=== PATIENT | female | born 2000 | race Caucasian/White ===

== ENCOUNTER 2022-01-09 17:20 | Emergency (ER) | payer MEDICAID, SELFPAY ==
[2022-01-09 17:21] VITALS: BP 114/74; PULSE 89; RESP 16; TEMP 36.2; O2SAT 99; BMI 23.0
[2022-01-09 18:19] LABS: Absolute Lymphocyte Count 2.72 X10^3/uL (0.83-4.51); Absolute Neutrophil Count 3.6 X10^3/uL (2.0-7.7); Basophil# 0.02 X10^3/uL; Basophil% 0.3 % (0-1); Eosinophil# 0.07 X10^3/uL; Hematocrit 43.6 % (37-47); Hemoglobin 14.6 g/dL (12.0-15.0); Lymphocyte # 2.72 X10^3/ul (0.83-4.51); Lymphocyte % 39.2 % (19-41); Mean Corp Hgb Conc 33.5 g/dL (32-36); Mean Corpuscular Volume 89.7 fL (81-99); Monocyte# 0.51 X10^3/uL; Monocyte% 7.3 % (0-10); NRBC Flagged by Analyzer 0 % (0-5); Neutrophil % 51.9 % (47-70); Platelet Count 259 K/mm3 (150-450); Red Blood Count 4.86 M/mm3 (4.2-5.4); White Blood Count 6.9 K/mm3 (4.4-11.0)
[2022-01-09 18:33] LABS: Anion Gap 7 (5-15); BUN 17 mg/dL (7-18); BUN/Creat Ratio 23.1 RATIO (10-20); Calcium,Total 9.4 mg/dL (8.5-10.1); Chloride 104 mmol/L (98-107); Creatinine, Serum 0.74 mg/dL (0.55-1.02); EST Glomerular Filtration Rate 107 mL/min (>60); Est Glom Filt Rate - Afr Amer 130 mL/min (>60); Estimated Creatinine Clearance 87.11 ml/min; Glucose 83 mg/dL (74-106); Potassium 3.8 mmol/L (3.5-5.1); Sodium Level 139 mmol/L (136-145)
[2022-01-09 18:49] LABS: Internal QC Validated? YES +Cl - CLEAR BKGD
[2022-01-09 18:50] LABS: Pregnancy, Serum, hCG Quali. NEGATIVE Negative
[2022-01-09 21:26] LABS: Mucous, Urine 0 SEEN /hpf (<or=2+); Red Blood Cells-Urine 0 SEEN /hpf (0-5)
[2022-01-09 21:35] LABS: Color, Urine Yellow (Yellow); Glucose, Dipstick Normal (Normal); Ketone-Dipstick Negative (Negative); Leukocyte Esterase-Dipstick 500 /ul (Negative); Nitrite-Dipstick Negative (Negative); Occult Blood-Urine 10 /ul (Negative); Protein-Dipstick 15 mg/dl (Negative); Specific Gravity, Urine 1.025 (1.002-1.030); Urine Bilirubin Dipstick Negative (Negative); Urine Clarity Sl. Cloudy (Clear); Urine Urobilinogen Normal (Normal)
[2022-01-09 21:42] LABS: Bacteria 1+ /hpf (None Seen); Squamous Epithelial Cells - UA 5-10 SEEN /hpf (5-10); White Blood Cells 10-25 SEEN /hpf (0-5)
--- NOTE | 2022-01-09 22:21 | ED.VIS.GI ---
HPI HPI - GI History of Present Illness Chief Complaint: Abd Pain Informant: patient Abdominal Pain/Flank Pain Onset: Today Context: Gradual Onset Timing: Intermittent Quality: Cramping and Sharp Location: Diffuse Worsened by: - (Sitting, ambulation) Relieved by: Nothing Nausea/Vomiting/Emesis GI Symptom: Negative for Nausea or Vomiting Diarrhea/Melena/Hematochezia GI Symptom: Negative for Diarrhea, Melena or Hematochezia Associated Symptoms Associated Symptoms: Negative for Dysuria, Frequency or Hematuria Narrative Narrative: Patient presents with abdominal pain that began today. Patient states it has been intermittent. Patient describes it as cramping and sharp at times. Patient states it is diffuse across her abdomen. Patient states it is worse with sitting and with walking. Patient states her pain is worse over her lower abdomen. Patient denies any nausea or vomiting. Patient denies any diarrhea, melena, or hematochezia. Patient denies any dysuria, hematuria, or frequency. Patient states she has been constipated. Patient states her last menstrual period was at the beginning of this month. PFSH PFSH Home Medications cephalexin 500 mg capsule 500 mg PO Q6 #12 CAPSULES 01/09/22 [Rx Last Taken Unknown] Allergy/AdvReac Type Severity Reaction Status Date / Time methylphenidate Allergy Hives Verified 01/09/22 17:21 [From Ritalin] Surgical History (Updated 01/09/22 @ 22:[address] Jayesh Duffy DO) Hx of toe surgery Social History Smoking Status: Never smoker ROS ROS ED Constitutional Constitutional ED: Denies chills or fever(s) Eyes Eyes: Denies blurry vision or change in vision ENT ENT ED: Denies rhinorrhea or sore throat Cardiovascular Cardiovascular: Denies chest pain or palpitations Respiratory/Chest Respiratory/Chest: Denies cough or dyspnea Gastrointestinal Gastrointestinal: Reports abdominal pain and constipation; Denies nausea or vomiting Genitourinary Genitourinary ED: Denies dysuria or hematuria Musculoskeletal Musculoskeletal: Denies back pain or neck pain Integumentary Denies abscess or rash Neurologic Neurologic: Reports headache(s); Denies weakness Allergic/Immunologic Allergic/Immunologic ED: Denies mouth swelling or urticaria EXAM Physical Exam Const Vital Signs: 01/09/22 17:21 Temperature 97.2 F L Temperature Source Temporal Pulse Rate 89 Respiratory Rate 16 Blood Pressure 114/74 Blood Pressure Mean 87 Pulse Ox 99 Oxygen Delivery Method Room Air Positive well nourished and well developed General Appearance ED: well developed HEENT Reports moist mucous membranes Neck supple and no JVD Resp normal respiratory effort and clear to auscultation bilaterally Cardio regular rate, regular rhythm and no murmurs GI normal to inspection, nondistended, normoactive bowel sounds Palpation: soft and tender epigastric, LLQ, RLQ, LUQ, RUQ, periumbilical and suprapubic; Negative for guarding or rebound tenderness present Narrative: Rectal exam did not show any abscess, fissure, bleeding, or hemorrhoid. Extremity normal to inspection General Extremety ED: Negative for edema or tenderness General Extremity: Negative for edema Neuro oriented x3, CN's II-XII intact bilaterally and no sensory deficits noted Sensorium / Orientation: alert Motor Exam: strength 5/5 throughout Psych mental status grossly normal Skin no rashes or lesions noted MDM MDM MDM Narrative Medical decision making narrative: CBC was within normal limits. Basic metabolic profile was within normal limits. Serum hCG was negative. Urinalysis shows a leukocyte esterases of 500 with 10-25 white blood cells and 5-10 epithelial cells. Urine culture was ordered. Patient was given a dose of Keflex here. Patient was given a prescription for Keflex. Patient was instructed to follow-up with her primary care physician in 5 to 7 days. Patient understood and was agreeable with plan. All questions were answered. Lab Data Attestation: I reviewed the patient's lab results. Labs: Laboratory Results - last 24 hr 01/09/22 01/09/22 01/09/22 18:05 18:05 18:05 WBC 6.9 RBC 4.86 Hgb 14.6 Hct 43.6 MCV 89.7 MCH 30.0 MCHC 33.5 RDW Std Deviation 39.0 RDW Coeff of [place]elo 12.0 Plt Count 259 MPV 11.0 Immature Gran % (Auto) 0.300 Neut % (Auto) 51.9 Lymph % (Auto) 39.2 [place] % (Auto) 7.3 Eos % (Auto) 1.0 Baso % (Auto) 0.3 Absolute Neuts (auto) 3.6 Absolute Lymphs (auto) 2.72 Nucleated RBC % 0 Sodium 139 Potassium 3.8 Chloride 104 Carbon Dioxide 28.0 Anion Gap 7 BUN 17 Creatinine 0.74 Estim Creat Clear Calc 87.11 Est GFR (MDRD) Af Amer 130 Est GFR (MDRD) Non-Af 107 BUN/Creatinine Ratio 23.1 H Glucose 83 Calcium 9.4 Serum , Qual NEGATIVE Urine Color Urine Clarity Urine pH Ur Specific [place] Urine Protein Urine Glucose (UA) Urine Ketones Urine Occult Blood Urine Nitrite Urine Bilirubin Urine Urobilinogen Ur Leukocyte Esterase Urine RBC Urine WBC Ur Squamous Epith Cells Urine Bacteria Urine Mucus 01/09/22 21:20 WBC RBC Hgb Hct MCV MCH MCHC RDW Std Deviation RDW Coeff of [place] Plt Count MPV Immature Gran % (Auto) Neut % (Auto) Lymph % (Auto) [place] % (Auto) Eos % (Auto) Baso % (Auto) Absolute Neuts (auto) Absolute Lymphs (auto) Nucleated RBC % Sodium Potassium Chloride Carbon Dioxide Anion Gap BUN Creatinine Estim Creat Clear Calc Est GFR (MDRD) Af Amer Est GFR (MDRD) Non-Af BUN/Creatinine Ratio Glucose Calcium Serum , Qual Urine Color Yellow Urine Clarity Sl. Cloudy Urine pH 6.0 Ur Specific [place] 1.025 Urine Protein 15 H Urine Glucose (UA) Normal Urine Ketones Negative Urine Occult Blood 10 H Urine Nitrite Negative Urine Bilirubin Negative Urine Urobilinogen Normal Ur Leukocyte Esterase 500 H Urine RBC 0 SEEN Urine WBC 10-25 SEEN Ur Squamous Epith Cells 5-10 SEEN Urine Bacteria 1+ Urine Mucus 0 SEEN Discharge Plan Triage Chief Complaint: Abd Pain ED Provider: Jayesh Duffy Dx/Rx/DC Orders Clinical Impression: Urinary tract infection, Abdominal pain Instructions: ED Cystitis Female Adult Prescriptions: New cephalexin [cephalexin] 500 mg capsule 500 mg PO Q6 Qty: 12 0RF Primary Care Provider: Ruben Mar Referrals: Ruben Mar MD [Primary Care Provider] - 5-7 Days Disposition Disposition: Home, Self Care
[2022-01-09] MEDS: Cephalexin 500 MG Capsule PO (22:35)
== END 2022-01-09 22:40 | disposition home or self-care (01) ==
PROVIDERS: Emergency Provider Emergency Medicine; PCP Family Medicine; Visit Provider Emergency Medicine
DX: N39.0 Urinary tract infection, site not specified (principal); R10.9 Unspecified abdominal pain
CPT/HCPCS: 80048; 81001; 84703; 85025; 87077; 87086; 87088; 87186; 99283; A4216

== ENCOUNTER 2023-01-06 18:08 | Emergency (ER) | payer MEDICAID, SELFPAY ==
[2023-01-06 18:08] VITALS: BP 123/75; PULSE 69; RESP 16; TEMP 36.3; O2SAT 100; BMI 24.3
--- NOTE | 2023-01-06 18:39 | EDS_ITS ---
HPI History of Present Illness Chief Complaint: Upper Extremity Injury Narrative Narrative: 23-year-old female who denies significant past medical history, [id number], presents with injury to her right wrist that she sustained approximately 1 week ago. She states that she was holding on, riding a mechanical bull last week, with 1 hand. Afterwards she had pain in her right wrist that was worse with movement. She thought that the pain would go away, but with lifting anything and continued use she is having pain in her right wrist, mainly along the right medial portion/distal ulna. She denies other injury. She has not been taking any analgesics. [facility] Medical History ADHD Anxiety Home Medications amoxicillin 500 mg capsule 500 mg PO Q12H 01/06/23 [History Last Taken Unknown] Allergy/AdvReac Type Severity Reaction Status Date / Time methylphenidate Allergy Hives Verified 01/09/22 17:21 [From Ritalin] Surgical History Hx of toe surgery Social History Smoking Status: Never smoker ROS ROS ED ROS Narrative Constitutional: No fever, no chills. HEENT: No sore throat. No neck pain. No loss of vision. No rhinorrhea. Cardiovascular: No chest pain. No palpitations. No pedal edema. Respiratory: No cough, no shortness of breath. Abdominal: No abdominal pain. No nausea. No vomiting. Genitourinary: No dysuria. No hematuria. Musculoskeletal: No myalgias. Right wrist pain, worse with movement. Neurologic: No headaches. No dizziness. No lightheadedness. Skin: No rash. No change in color. Psychiatric: No depression. No anxiety. EXAM Physical Exam Narrative Exam Narrative: Afebrile. Vital signs noted. HEENT: Normocephalic. Atraumatic. PERRL, EOMI. Neck soft and supple. No point tenderness or step off. Cardiovascular: Regular rate and rhythm. No murmurs, rubs, or gallops appreciated. Respiratory: No tachypnea. Lungs clear to auscultation bilaterally. Gastrointestinal: Abdomen soft, nontender, with normoactive bowel sounds. No rebound or guarding. Neurological: Awake. Alert. Nonfocal, nonlateralizing. Skin: No rash. Normal color. No pallor. Musculoskeletal: No pedal edema. Full range of motion extremities except right wrist secondary to pain. No overt swelling. Palpable radial pulse. Mild tenderness along distal ulna. Neurovascular intact distally to, able to oppose thumb. Good capillary refill. Able to abduct and abduct fingers. Uninjured at the elbow and above. Const Vital Signs: 01/06/23 18:08 Temperature 97.4 F L Temperature Source Temporal Pulse Rate 69 Respiratory Rate 16 Blood Pressure 123/75 H Blood Pressure Mean 91 Pulse Ox 100 Oxygen Delivery Method Room Air MDM MDM MDM Narrative Medical decision making narrative: Concern would be for wrist fracture versus wrist sprain. X-rays were obtained of the right wrist in 3 views and she was given naproxen 550 mg here in the emergency department. She declined ice pack. X-rays of the right wrist interpreted by myself independently in 3 views shows no evidence of acute fractu re. I reviewed the radiology report which confirms my independent interpretation. At this point in time, she will be placed in a Velcro wrist splint, continue ice and elevation at home, and follow-up with her primary care provider in a week if not improving. She will take [id number] analgesics. I do not feel that she requires narcotic pain medication or admission. Return instructions to the emergency department were reviewed. Disposition is discharged home in stable condition. Discharge Plan Triage Chief Complaint: Upper Extremity Injury ED Provider: Martell Jade Dx/Rx/DC Orders Clinical Impression: Acute pain of right wrist, Right wrist sprain Instructions: ED Wrist Sprain Prescriptions: No Action amoxicillin 500 mg capsule 500 mg PO Q12H Patient Comments: TAKE 1 CAPSULE TWICE DAILY Primary Care Provider: Ruben Mar Referrals: Ruben Mar MD [[facility]] - 1 Week if not improving Disposition Disposition: Home, Self Care
--- NOTE | 2023-01-06 19:07 | RAD_ITS ---
STUDY: X-RAY - RIGHT WRIST REASON FOR EXAM: Female, 23 years old. Trauma, Pain TECHNIQUE: 3 view(s) of the wrist were obtained. COMPARISON: None. FINDINGS: Normal visualized distal radius and ulna. Normal radiocarpal articulation. Normal distal radioulnar articulation. Normal carpal bones. Normal carpal articulations. Normal carpometacarpal articulation of the thumb. Normal second through fifth carpometacarpal articulations. Normal visualized metacarpal bones. Mild soft tissue swelling at the wrist. There is no demonstrated acute fracture. RAD/Wrist min 3 Views IMPRESSION: Unremarkable x-ray examination of the wrist with no acute fracture or subluxation. Electronically Signed: Jocelyne Zimmerman MD at 19:20 EDT ,
[2023-01-06 20:08] VITALS: RESP 16
== END 2023-01-06 20:13 | disposition home or self-care (01) ==
PROVIDERS: Emergency Provider Emergency Medicine; PCP Family Medicine; Visit Provider Emergency Medicine
DX: S63.91XA Sprain of unspecified part of right wrist and hand, initial encounter (principal); X58.XXXA Exposure to other specified factors, initial encounter
CPT/HCPCS: 73110; 99283

== ENCOUNTER 2023-05-31 09:51 | Emergency (ER) | payer MEDICAID, SELFPAY ==
[2023-05-31 09:53] VITALS: BP 119/78; PULSE 108; RESP 16; TEMP 36.4; O2SAT 97; BMI 24.4
--- NOTE | 2023-05-31 10:11 | EX.ED.VIS.UR ---
HPI HPI - URI History of Present Illness Chief Complaint: Cold Sx Informant: patient Onset/Context/Timing Onset: Days (5) Context: Gradual Onset Timing: Continuous Quality: Aching Location: Throat Worsened by: Swallowing Relieved by: - ([id number] decongestants) Associated Symptoms Associated Symptoms: Positive for Nasal Congestion, Headache, Sinus Pressure, Myalgias, Shortness of Breath, Chest Pain and Nonproductive cough; Negative for Nausea, Vomiting, Diarrhea, Hemoptysis or Productive Cough Narrative Narrative: Patient presents with sore throat, cough, and lightheadedness that has been getting worse over the past 5 days. Patient describes her pain as aching. Patient states it is mainly in her throat. Patient also admits to a headache. Patient states her headache is diffuse. Patient admits to some sinus pressure and some nasal congestion. Patient states her throat pain is worse with swallowing. Patient states she has been taking [id number] cough medications and decongestants which have been helping somewhat. Patient admits to some mild shortness of breath. Patient admits to some pain in her chest with coughing. Patient denies any sputum production. Patient states her temperature at home was up to 101. ROS ROS ED Constitutional Constitutional ED: Reports fever(s); Denies chills Eyes Eyes: Denies blurry vision or change in vision ENT ENT ED: Reports rhinorrhea and sore throat Cardiovascular Cardiovascular: Reports chest pain; Denies palpitations Respiratory/Chest Respiratory/Chest: Reports cough and dyspnea Gastrointestinal Gastrointestinal: Denies nausea or vomiting Genitourinary Genitourinary ED: Denies dysuria or hematuria Musculoskeletal Musculoskeletal: Reports neck pain; Denies back pain Integumentary Denies abscess or rash Neurologic Neurologic: Reports headache(s); Denies weakness Allergic/Immunologic Allergic/Immunologic ED: Denies mouth swelling or urticaria PFSH PFS Medical History ADHD Anxiety Home Medications amoxicillin 500 mg capsule 500 mg PO Q12H 01/06/23 [History Last Taken Unknown] Allergy/AdvReac Type Severity Reaction Status Date / Time methylphenidate Allergy Hives Verified 05/31/23 09:54 [From Ritalin] Surgical History Hx of toe surgery Social History Smoking Status: Never smoker EXAM Physical Exam Const Vital Signs: 05/31/23 09:53 05/31/23 09:58 Temperature 97.5 F L Temperature Source Temporal Pulse Rate 108 H Respiratory Rate 16 Respiratory Effort Normal Respiratory Pattern Normal Blood Pressure 119/78 Blood Pressure Mean 91 Pulse Ox 97 Oxygen Delivery Method Room Air Positive well nourished and well developed General Appearance ED: well developed and NAD HEENT Reports moist mucous membranes normocephalic Face and Sinus: Negative for sinus tenderness or facial tenderness Throat: posterior oropharynx abnormal Positive for erythema; Negative for exudates Neck supple, no meningeal signs and no JVD General: lymphadenopathy anterior cervical Resp normal respiratory effort and clear to auscultation bilaterally Cardio Rate: regular rate Rhythm: regular rhythm GI non-tender and non-distended Palpation: soft Extremity normal to inspection and full ROM Neuro oriented x3, CN's II-XII intact bilaterally and no sensory deficits noted Sensorium / Orientation: alert Motor Exam: strength 5/5 throughout Psych mental status grossly normal MDM MDM MDM Narrative Medical decision making narrative: Differential diagnosis includes strep pharyngitis, and viral illness. Rapid strep PCR will be obtained to assess for strep pharyngitis. COVID-19, influenza, and RSV PCR will be obtained to assess for viral illness. Lab Data Lab results narrative: Rapid strep was reviewed and was negative. COVID-19 PCR was reviewed and was negative. Influenza PCR was reviewed and was positive for influenza A and negative for influenza B. RSV PCR was reviewed and was negative. Treatment and Re-Evaluation Narrative: Patient was advised of her findings. Patient was advised that she is outside the window for Tamiflu. Patient was instructed to continue Tylenol and ibuprofen as needed for any fevers. Patient was instructed to drink plenty of fluids. Patient was instructed to follow-up with her primary care physician in 5 to 7 days. Patient understood and was agreeable with the plan. All questions were answered. Discharge Plan Triage Chief Complaint: Cold Sx ED Provider: Jayesh Duffy Dx/Rx/DC Orders Clinical Impression: Influenza A Instructions: ED Influenza (Adult) Prescriptions: No Action amoxicillin 500 mg capsule 500 mg PO Q12H Patient Comments: TAKE 1 CAPSULE TWICE DAILY Primary Care Provider: Care Physician,No Primary Referrals: Ruben Mar MD [Non-Staff] - 5-7 Days Disposition Disposition: Home, Self Care
--- OUTSIDE RECORDS SUMMARY | 2023-05-31 11:14 | XMS RPT_ITS | CCD ---
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 01/05/2021 9:59 AM:Goal for Mobility : Decrease/Manage Pain,Medicate as prescribed to maintain comfort level,Position body/joint as needed to relieve pain/stress,Maintain active lifestyle as tolerated Patient Stated Goals from 01/05/2021 9:59 AM:Patient's Personal Life Style and Recovery Goal : Safe recoveryPatient's Personal Life Style and Recovery Plan : Safe recovery Source Comments (unrecognize d section and content) In the event this informatio n is protected by the Federal Confidentiality of Alcohol and Drug Abuse Patient Records regulations: The Federal rules restrict any use of the information to criminally investigate or prosecute any alcohol or drug abuse patient.[facility] the event this information is protected by the Federal Confidentiality of Alcohol and Drug Abuse Patient Records regulations: The Federal rules restrict any use of the information to criminally investigate or prosecute any alcohol or drug abuse patient.[facility] the event this information is protected by the Federal Confidentiality of Alcohol and Drug Abuse Patient Records regulations: The Federal rules restrict any use of the information to criminally investigate or prosecute any alcohol or drug abuse patient.[facility] the event this information is protected by the Federal Confidentiality of Alcohol and Drug Abuse Patient Records regulations: The Federal rules restrict any use of the information to criminally investigate or prosecute any alcohol or drug abuse patient.[facility] the event this information is protected by the Federal Confidentiality of Alcohol and Drug Abuse Patient Records regulations: The Federal rules restrict any use of the information to criminally investigate or prosecute any alcohol or drug abuse patient.[facility] the event this information is protected by the Federal Confidentiality of Alcohol and Drug Abuse Patient Records regulations: The Federal rules restrict any use of the information to criminally investigate or prosecute any alcohol or drug abuse patient.[facility] the event this information is protected by the Federal Confidentiality of Alcohol and Drug Abuse Patient Records regulations: The Federal rules restrict any use of the information to criminally investigate or prosecute any alcohol or drug abuse patient.[facility] the event this information is protected by the Federal Confidentiality of Alcohol and Drug Abuse Patient Records regulations: The Federal rules restrict any use of the information to criminally investigate or prosecute any alcohol or drug abuse patient.[facility] the event this information is protected by the Federal Confidentiality of Alcohol and Drug Abuse Patient Records regulations: The Federal rules restrict any use of the information to criminally investigate or prosecute any alcohol or drug abuse patient.[facility] the event this information is protected by the Federal Confidentiality of Alcohol and Drug Abuse Patient Records regulations: The Federal rules restrict any use of the information to criminally investigate or prosecute any alcohol or drug abuse patient.[facility] the event this information is protected by the Federal Confidentiality of Alcohol and Drug Abuse Patient Records regulations: The Federal rules restrict any use of the information to criminally investigate or prosecute any alcohol or drug abuse patient.[facility] Reason for Visit (unrecogniz ed section and content) Reason Comments Established Patient toenail removal Reason Comments Schedule Surgery Reason Comments Appointment - PAT Reason Comments Consult Reason Comments Patient Update Reason Comments Follow Up Ingrown Nail Reason Onset Date Comments Refill Request 01/09/2022 Reason Comments Patient Question Care Teams (unrecognized sec tion and content) Nutrition Technician Relationship Specialty Start Date End Date Jomar Foley MD PCP - General Family Practice 12/01/12 Nutrition Technician Relationship Specialty Start Date End Date Jomar Foley MD PCP - General Family Practice 12/01/12 Nutrition Technician Relationship Specialty Start Date End Date Jomar Foley MD PCP - General Family Practice 12/01/12 Nutrition Technician Relationship Specialty Start Date End Date Jomar Foley MD PCP - General Family Practice 12/01/12 Nutrition Technician Relationship Specialty Start Date End Date Amilcar Mar MD [address] [place] [address] PCP - General Family Practice 09/29/21 Nutrition Technician Relationship Specialty Start Date End Date Amilcar aMr MD [address] [facility] [place] [address] PCP - General Family Practice 09/29/21 Nutrition Technician Relationship Specialty Start Date End Date Amilcar Mar MD [address] [place] [address] PCP - General Family Practice 09/29/21 Nutrition Technician Relationship Specialty Start Date End Date Amilcar Mar MD [address] [place] [address] PCP - General Family Medicine 09/29/21 Nutrition Technician Relationship Specialty Start Date End Date Amilcar Mar MD [address] [place], [place] [id number] PCP - General Family Medicine 09/29/21 FOR RECORDS PERTAINING TO PATIENTS WHO ARE OR HAVE BEEN ENROLLED IN A CHEMICAL DEPENDENCY/SUBSTANCEABUSE PROGRAM, SOME INFORMATION MAY BE OMITTED. This clinical summary was aggregated from multiple sources. Caution should be exercised in using it in the provision of clinical care. This summary normalizes information from multiple sources, and as a consequence, information in this document may materially change the coding, format and clinical context of patient data. In addition, data may be omitted in some cases. CLINICAL DECISIONS SHOULD BE BASED ON THE PRIMARY CLINICAL RECORDS. [employer] [facility]. provides no warranty or guarantee of the accuracy or completeness of information in this document.
== END 2023-05-31 11:24 | disposition home or self-care (01) ==
PROVIDERS: Emergency Provider Emergency Medicine; Visit Provider Emergency Medicine
DX: J10.1 Influenza due to other identified influenza virus with other respiratory manifestations (principal); Z11.52 Encounter for screening for COVID-19; M54.2 Cervicalgia
CPT/HCPCS: 87631; 87651; 99282

== ENCOUNTER 2023-08-24 03:52 | Emergency (ER) | payer MEDICAID, SELFPAY ==
[2023-08-24 03:53] VITALS: BP 132/80; PULSE 81; RESP 18; TEMP 36.6; O2SAT 99; BMI 24.7
--- NOTE | 2023-08-24 03:55 | EX.ED.DYSGE1 ---
HPI History of Present Illness Chief Complaint: Ear Problem [facility] Medical History ADHD Anxiety Home Medications NK 08/24/23 [History Last Taken Unknown] amoxicillin 875 mg-potassium clavulanate 125 mg tablet 1 tab PO BID 7 days #14 tabs 08/24/23 [Rx Last Taken Unknown] Allergy/AdvReac Type Severity Reaction Status Date / Time methylphenidate Allergy Hives Verified 08/24/23 03:52 [From Ritalin] Surgical History Hx of toe surgery Social History Smoking Status: Current every day smoker tobacco type: e-cigarettes EXAM Physical Exam Const Vital Signs: 08/24/23 03:53 Temperature 98 F Temperature Source Temporal Pulse Rate 81 Respiratory Rate 18 Blood Pressure 132/80 H Blood Pressure Mean 97 Pulse Ox 99 MDM MDM MDM Narrative Medical decision making narrative: HISTORY OF PRESENT ILLNESS: 23 year-old female presents with ear pain. Notes 1 day of left ear pain. No sore throat. Notes recent sinus infection. Denies any vomiting chills. REVIEW OF SYSTEMS: Pertinent positives: Ear pain, sore throat Pertinent negatives: Vomiting, cough, shortness of breath PHYSICAL EXAM: Nursing triage notes reviewed, Vital signs reviewed Constitutional: please see mdm HENT: MMM, left TM hyperemic, opacified. Right TM pearly jimenez with good light reflex. No mastoid tenderness Eyes: Pupils equal round and reactive to light, Extraocular muscles intact Neck: No stridor, no JVD, full neck ROM Lungs: Clear to auscultation, No wheezing or rales. No increased work of breathing, no conversational dyspnea, no accessory muscle use, no nasal flaring. No respiratory distress noted Heart: Regular rate and rhythm, No murmurs, No rubs and No gallops, 2+ distal pulses (radial, femoral, posterior tibial) in all extremities Abdomen: Soft, there is no tenderness, rigidity, rebound or guarding, no obvious peritoneal signs, no palpable pulsatile abdominal masses, no auscultated abdominal bruit MEDICAL DECISION MAKING: Chief Complaint: Ear pain External records reviewed: Prior ED visits reviewed: Seen for influenza A in May 2023 Factors affecting care: none [facility] Narrative: Patient was hemodynamically stable, afebrile, nontoxic-appearing. Exam consistent with otitis media. Exam without mastoid tenderness, no signs of otitis,externa. Will give Augmentin. Will give Tylenol and ibuprofen instructions. Give strict return precautions and follow-up instructions. The patient and/or family, caregivers express understanding. The patient and/or family, caregivers agrees with the plan. Shared decision making: I will have a discussion with the patient and or visitors regarding risk/benefits of further testing or admission. They will be made aware of of the risk/benefits inherent in this decision they will be given the opportunity to voice understanding. Total critical care time today provided was at least 0 minutes. This excludes separately billable procedures. Critical care time (if documented) is secondary to the patient having high probability of clinically significant/life threatening deterioration in the patient's condition which required my urgent intervention. Impression: 1. Acute otitis media 2. Ear pain Dispo: Discharge home This note was generated with [employer] dictation software. It may contain incorrect words, spelling, and punctuation that were not noted in review of the chart prior to signing. Discharge Plan Triage Chief Complaint: Ear Problem ED Provider: Satish Dong Dx/Rx/DC Orders Clinical Impression: Otitis media Instructions: ED Otitis Media Adult Prescriptions: New amoxicillin-pot clavulanate 875-125 mg tablet 1 tab PO BID 7 Days Qty: 14 0RF No Action NK Primary Care Provider: Care Physician,No Primary Referrals: Amilcar Santoro MD [Med Staff - Hose Seamer] - Activity Restrictions/Additional Instructions: Thank you for trusting us with your care today! Please take Tylenol (2 pills, 650 mg), ibuprofen (2 pills, 400 mg) every 6 hours as needed for pain and fever control. Please take antibiotics until course complete. Please return to the emergency department if your symptoms change or worsen. Specifically develop severe headache, vomiting, numbness, weakness or loss of sensation in your extremities. Please follow with your primary care physician for further outpatient evaluation and management. Disposition Disposition: Home, Self Care
[2023-08-24] MEDS: Amox/Clavulanate 875 MG Tablet PO (04:22)
[2023-08-24] MEDS: Ibuprofen 200 MG Tablet 400 MG PO (04:22)
[2023-08-24 04:23] VITALS: BP 132/81; PULSE 72; RESP 16; TEMP 36.7; O2SAT 99
== END 2023-08-24 04:24 | disposition home or self-care (01) ==
LOC: ED 04:11
PROVIDERS: Emergency Provider Emergency Medicine; PCP Family Medicine; Visit Provider Emergency Medicine
DX: H66.92 Otitis media, unspecified, left ear (principal); F17.290 Nicotine dependence, other tobacco product, uncomplicated
CPT/HCPCS: 99282

== ENCOUNTER 2023-10-29 23:30 | Emergency (ER) | payer MEDICAID, SELFPAY ==
[2023-10-29 23:31] VITALS: BP 122/75; PULSE 77; RESP 16; TEMP 36.1; O2SAT 100; BMI 22.6
[2023-10-30] MEDS: MethylPREDNISolone 125 MG/2 ML Vial IV (00:51)
[2023-10-30] MEDS: DiphenhydrAMINE 50 MG/ML Syringe IV (00:51)
[2023-10-30] MEDS: Famotidine 20mg IV Push Syringe Q24 300 MG IV (00:52)
--- NOTE | 2023-10-30 02:31 | ED.VIS.FEGU ---
HPI HPI - Female History of Present Illness Chief Complaint: Female C/O Informant: patient Narrative Narrative: Patient is a G2, P1 female approximately 4 weeks with past medical history of ADHD and anxiety. She states over the last 2 days she has felt swelling and irritation in her genital region. She reports faint discharge but denies any bleeding and also denies any concern for STD. She states that she went to an [facility] today and they did a urine sample which reported showed no sign of infection and she did a self swab to check for yeast. She states that the medication she was prescribed was not available at the pharmacy and she has had persistent irritation and therefore comes in for evaluation [facility] Medical History Former smoker Anxiety ADHD Home Medications ?Medication ?Instructions ?Recorded ?Last Taken ?Type prednisone 20 mg tablet 40 mg (2 x 20 mg) PO DAILY 7 days 10/30/23 Unknown Rx #14 tabs triamcinolone acetonide 0.1 % 1 applic topical TID PRN Skin 10/30/23 Unknown Rx topical cream irritation #80 grams Allergy/AdvReac Type Severity Reaction Status Date / Time methylphenidate (From Allergy Hives Verified 10/29/23 23:31 Ritalin) Surgical History Hx of toe surgery Social History Smoking Status: Former smoker ROS ROS ED Constitutional Constitutional ED: Denies chills or fever(s) ENT ENT ED: Denies sore throat Cardiovascular Cardiovascular: Denies chest pain Respiratory/Chest Respiratory/Chest: Denies cough or dyspnea Gastrointestinal Gastrointestinal: Denies abdominal pain, diarrhea, nausea or vomiting Genitourinary Genitourinary ED: Reports other Details: Positive genital pain and irritation ; Denies dysuria, hematuria or urinary frequency Musculoskeletal Musculoskeletal: Denies myalgias Integumentary Denies rash Neurologic Neurologic: Denies headache(s) Hematologic/Lymphatic Hematologic/Lymphatic: Denies easy bleeding or easy bruising EXAM Physical Exam Const Vital Signs: 10/29/23 23:31 10/30/23 02:46 Temperature 96.9 F L 97.9 F Temperature Source Temporal Pulse Rate 77 70 Respiratory Rate 16 15 Blood Pressure 122/75 H 112/69 Blood Pressure Mean 90 83 Pulse Ox 100 99 Oxygen Delivery Method Room Air Positive well nourished and well developed General Appearance ED: well developed HEENT Reports moist mucous membranes HEENT Narrative: No tongue or lip swelling no oral lesions no airway edema or compromise Eyes PERRL and EOMs intact bilaterally General Eye ED: Negative for scleral icterus Neck supple Resp normal respiratory effort and clear to auscultation bilaterally Cardio regular rate and regular rhythm GI normal to inspection, nondistended, normoactive bowel sounds, soft to palpation, non-tender, non-distended and no masses Auscultation: normoactive bowel sounds Palpation: soft Narrative: The patient's genital region such as her labia majora and clitoris and labia minora are diffusely erythematous and edematous most consistent with allergic reaction. No hematoma noted. No vesicular or pustule changes. No discharge present at the vaginal os. No unilateral findings to suggest Bartholin cyst/abscess. No crepitance to suggest Ciara's gangrene. Extremity normal to inspection and full ROM Neuro oriented x3, CN's II-XII intact bilaterally and no sensory deficits noted Sensorium / Orientation: alert Motor Exam: strength 5/5 throughout Psych mental status grossly normal Skin Skin Narrative: Patient has an erythematous urticarial blanchable rash that extends from the head/face down the chest back abdomen and thighs most consistent with acute allergic reaction. No involvement of the palms or soles MDM MDM MDM Narrative Medical decision making narrative: Patient arrived to the ER with stable vitals. She reported that she had already been seen at an outpatient facility where she had a urine sample and was reportedly checked for a yeast infection. She denied any bleeding and this goes against potential of threatened miscarriage as cause of her symptoms. She denied any concern for STD as well and reported that the genitals were irritated and swollen small amount of discharge but denied any purulent discharge. While in the ER the patient did have a systemic rash and reports that she recently dyed her hair. She states that tonight was the first time she has washed her hair since dining on October 23 and that this would be the only new exposure. This correlates with her general exam as there is diffuse erythema and soft tissue swelling without overt infection changes or any type of discharge or overlying white hue to suggest infectious process such as STD or cutaneous candidiasis/vaginal candidiasis or Bartholin abscess/cyst. The patient did not have signs of respiratory distress so there is no need for epinephrine but based on her acute allergic reaction she was given Benadryl Solu-Medrol and Pepcid. She is watched in the ER for approximately 2 hours and had significant improvement in her rash and remained in no acute respiratory distress. Therefore this time I do not feel that her vaginal irritation is infectious but all allergic most likely related to the recent hair dye and as she is not having abdominal pain or bleeding there is no need for an emergent transvaginal ultrasound and patient can be discharged home with symptomatic care History & Record Review Discussion w/independent historian: Patient Discharge Plan Triage Chief Complaint: Female C/O ED Provider: Nicholas Marte Dx/Rx/DC Orders Clinical Impression: Allergic reaction, ADHD, Anxiety Instructions: ED General Allergic Reactions, ED Contact Dermatitis Prescriptions: New prednisone 20 mg tablet 40 mg PO DAILY 7 Days Qty: 14 0RF triamcinolone acetonide 0.1 % cream 1 applic topical TID PRN (Reason: Skin irritation) Qty: 80 0RF Primary Care Provider: Ruben Mar Referrals: Ruben Mar MD [Primary Care Provider] - Activity Restrictions/Additional Instructions: Your exam is most consistent with an allergic reaction most likely to your hair dye. Take the steroids to reduce rash and inflammation internally but use the topical steroid cream as directed to reduce swelling and irritation in the genital region. If you can no longer urinate you feel short of breath or have any further concerns please return for repeat evaluation Print Language: Palauan Disposition Disposition: Home, Self Care Discharge Date/Time: 10/30/23 02:52
[2023-10-30 02:46] VITALS: BP 112/69; PULSE 70; RESP 15; TEMP 36.6; O2SAT 99
== END 2023-10-30 02:52 | disposition home or self-care (01) ==
PROVIDERS: Emergency Provider Emergency Medicine; PCP Family Medicine; Visit Provider Emergency Medicine
DX: O9A.211 Injury, poisoning and certain other consequences of external causes complicating pregnancy, first trimester (principal); T78.49XA Other allergy, initial encounter; O99.341 Other mental disorders complicating pregnancy, first trimester; M79.89 Other specified soft tissue disorders; F41.9 Anxiety disorder, unspecified; F90.9 Attention-deficit hyperactivity disorder, unspecified type; Z3A.01 Less than 8 weeks gestation of pregnancy; Z87.891 Personal history of nicotine dependence
CPT/HCPCS: 99283; A4216; J3490

== ENCOUNTER 2023-10-30 23:41 | Emergency (ER) | payer MEDICAID, SELFPAY ==
[2023-10-30 23:42] VITALS: BP 129/77; PULSE 66; RESP 18; TEMP 36.6; O2SAT 96; BMI 22.7
[2023-10-31 00:26] LABS: Bacteria 0 SEEN /hpf (None Seen); Mucous, Urine 0 SEEN /hpf (<or=2+); Red Blood Cells-Urine 0 SEEN /hpf (0-5); Squamous Epithelial Cells - UA 0 SEEN /hpf (5-10); White Blood Cells 0 SEEN /hpf (0-5)
[2023-10-31 00:31] LABS: Color, Urine Yellow (Yellow); Glucose, Dipstick 50 mg/dl (Normal); Ketone-Dipstick Negative (Negative); Leukocyte Esterase-Dipstick 25 /ul (Negative); Nitrite-Dipstick Negative (Negative); Occult Blood-Urine 250 /ul (Negative); Protein-Dipstick Negative (Negative); Urine Bilirubin Dipstick Negative (Negative); Urine Clarity Clear (Clear); Urine Urobilinogen Normal (Normal)
--- NOTE | 2023-10-31 00:37 | ED.VIS.FEGU ---
HPI HPI - Female History of Present Illness Chief Complaint: Vag Bld, Preg Informant: patient Narrative Narrative: Patient is a 23-year-old female G2, P1 (positive home test) with last menstrual period beginning of September so approximately 4 to 5 weeks . She is presenting with vaginal bleeding. Patient was started on miconazole suppositories which were prescribed yesterday for concern of yeast vaginitis. She did the first suppository today about 2 hours prior to arrival and an hour prior to arrival had which she describes as light. Bleeding. She denies any clots of blood. Patient was actually seen in our ER about 24 hours ago for allergic reaction and vaginitis thought to be secondary to a reaction from hair dye. Patient notes that about 50 minutes prior to arrival she had some mild pelvic cramping pain but thought maybe she was hungry and ate something. Denies any nausea or vomiting. Follows with [facility] but does not have an appointment until November at this time. No other complaints or concerns reported at this time. [facility] Medical History Former smoker Anxiety ADHD Home Medications ?Medication ?Instructions ?Recorded ?Last Taken ?Type prednisone 20 mg tablet 40 mg (2 x 20 mg) PO DAILY 7 days 10/30/23 Unknown Rx #14 tabs triamcinolone acetonide 0.1 % 1 applic topical TID PRN Skin 10/30/23 Unknown Rx topical cream irritation #80 grams Allergy/AdvReac Type Severity Reaction Status Date / Time methylphenidate (From Allergy Hives Verified 10/30/23 23:45 Ritalin) Surgical History Hx of toe surgery Social History Smoking Status: Former smoker ROS ROS ED Constitutional Constitutional ED: Denies chills or fever(s) Respiratory/Chest Respiratory/Chest: Denies cough Gastrointestinal Gastrointestinal: Denies abdominal pain, nausea or vomiting Genitourinary Genitourinary ED: Reports other Details: Vaginal bleeding, positive home test ; Denies dysuria or hematuria Musculoskeletal Musculoskeletal: Denies arthralgias or myalgias Integumentary Reports rash and other Details: Recent allergic reaction with rash that is improving (on prednisone) Neurologic Neurologic: Denies headache(s) Psychiatric Psychiatric: Reports anxiety Hematologic/Lymphatic Hematologic/Lymphatic: Denies easy bleeding or easy bruising EXAM Physical Exam Const Vital Signs: 10/30/23 23:42 10/31/23 01:44 Temperature 97.8 F 97.4 F L Temperature Source Temporal Pulse Rate 66 63 Respiratory Rate 18 18 Blood Pressure 129/77 H 123/68 H Blood Pressure Mean 94 86 Pulse Ox 96 98 Oxygen Delivery Method Room Air Positive well nourished and well developed General Appearance ED: well developed and NAD Eyes EOMs intact bilaterally Neck supple Chest Wall inspection of chest normal Resp normal respiratory effort and clear to auscultation bilaterally Cardio regular rate and regular rhythm GI normal to inspection, nondistended, normoactive bowel sounds and soft to palpation Auscultation: normoactive bowel sounds Palpation: tender suprapubic (Very mild); Negative for guarding or rigid Narrative: External exam performed?forging press setter up present. Patient does have bleeding dark red blood, no clots appreciated. Labia majora edema is appreciated consistent with her report of recent allergic reaction and yeast infection. No abnormal vaginal discharge appreciated. Did not attempt speculum exam given her edema and discomfort. Neuro oriented x3 Sensorium / Orientation: alert Motor Exam: Negative for general weakness Psych mental status grossly normal Skin no rashes or lesions noted MDM MDM MDM Narrative Medical decision making narrative: Patient is evaluated for vaginal bleeding in early . She is approximately 4 to 5 weeks based on last menstrual period. She appears nontoxic. Vital signs are normal. Abdominal exam is benign. She has very mild cramping. On exam she does have vaginal bleeding. I suspect that she is having a miscarriage. Her quant is 21. I have a low suspicion for ectopic and feel that there is low utility for pelvic exam at this time. Case is discussed with [facility], Dr. Olivo. She suspect this likely will be a miscarriage with her quant only being 21. Is agreeable with outpatient follow-up. Patient is instructed to call the office later today to have repeat quant ordered for 48 to 72 hours. Patient is agreeable with this plan of care. Patient is a positive and does not require RhoGAM. Discharged home in stable condition. Counseled take Tylenol as needed for pain. Counseled on the risk of miscarriage and diagnosis of threatened at this time. Given return precautions including heavy bleeding or worsening pain. Discharged home in stable condition Remains hemodynamically stable in the emergency room. Lab Data Labs: Laboratory Results - last 24 hr 10/31/23 10/31/23 00:16 00:27 Sodium 137 Potassium 3.7 Chloride 106 Carbon Dioxide 25.0 Anion Gap 6 BUN 14 Creatinine 0.84 Estim Creat Clear Calc 76.10 Est GFR (MDRD) Af Amer 109 Est GFR (MDRD) Non-Af 90 BUN/Creatinine Ratio 16.6 Glucose 139 H Calcium 9.0 Total Bilirubin 0.40 AST 18 ALT 16 Alkaline Phosphatase 76 Total Protein 7.5 Albumin 3.9 Globulin 3.6 Albumin/Globulin Ratio 1.1 HCG, Quant 21 H Urine Color Yellow Urine Clarity Clear Urine pH 7.0 Ur Specific [place] 1.010 Urine Protein Negative Urine Glucose (UA) 50 H Urine Ketones Negative Urine Occult Blood 250 H Urine Nitrite Negative Urine Bilirubin Negative Urine Urobilinogen Normal Ur Leukocyte Esterase 25 H Urine RBC 0 SEEN Urine WBC 0 SEEN Ur Squamous Epith Cells 0 SEEN Urine Bacteria 0 SEEN Urine Mucus 0 SEEN Blood Type A POSITIVE Discharge Plan Triage Chief Complaint: Vag Bld, Preg ED Provider: Digna Hopson Dx/Rx/DC Orders Clinical Impression: Threatened in early Instructions: Miscarriage Threatened Prescriptions: No Action prednisone 20 mg tablet 40 mg PO DAILY 7 Days Qty: 14 0RF triamcinolone acetonide 0.1 % cream 1 applic topical TID PRN (Reason: Skin irritation) Qty: 80 0RF Primary Care Provider: Ruben Mar Referrals: Ruben Mar MD [Primary Care Provider] - Michelle Antoine MD [Med Staff - Active Staff] - Activity Restrictions/Additional Instructions: Please call the office tomorrow to let them know that you need all blood work ordered for the next 2 to 3 days. You can let them know that the ER doctor spoke to Dr. Olivo about this. You may take Tylenol as needed for cramping. If you have severe pain or you start soaking more than a pad an hour for 2 to 3 hours in a row please return to the emergency room. Your level today (hCG) was 21. Print Language: [place] Disposition Disposition: Home, Self Care Discharge Date/Time: 10/31/23 01:44
[2023-10-31 00:58] LABS: ALB/GLOB Ratio 1.1 RATIO (0.9-2.4); AST(SGOT) 18 U/L (15-37); Alanine Aminotransfer ALT/SGPT 16 U/L (13-56); Albumin, Serum 3.9 g/dL (3.2-5.0); Alkaline Phosphatase 76 U/L (45-117); Anion Gap 6 (5-15); BUN 14 mg/dL (7-18); BUN/Creat Ratio 16.6 RATIO (10-20); Chloride 106 mmol/L (98-107); Creatinine, Serum 0.84 mg/dL (0.55-1.02); EST Glomerular Filtration Rate 90 mL/min (>60); Est Glom Filt Rate - Afr Amer 109 mL/min (>60); Globulin 3.6 g/dL (2.2-4.2); Glucose 139 mg/dL (74-106); Potassium 3.7 mmol/L (3.5-5.1); Protein, Total 7.5 g/dL (6.4-8.2); Sodium Level 137 mmol/L (136-145); hCG Titer Quant., Serum 21 mIU/mL (1-3)
[2023-10-31 01:44] VITALS: BP 123/68; PULSE 63; RESP 18; TEMP 36.3; O2SAT 98
== END 2023-10-31 01:44 | disposition home or self-care (01) ==
PROVIDERS: Emergency Provider Emergency Medicine; PCP Family Medicine; Visit Provider Emergency Medicine
DX: O20.0 Threatened abortion (principal); R10.2 Pelvic and perineal pain; Z3A.01 Less than 8 weeks gestation of pregnancy; Z87.891 Personal history of nicotine dependence
CPT/HCPCS: 80053; 81001; 84702; 86900; 86901; 99282

== ENCOUNTER → 2023-11-01 | Outpatient (CLI) | payer MEDICAID, SELFPAY ==
[2023-11-01 15:01] LABS: Internal QC Validated? YES +Cl - CLEAR BKGD
[2023-11-01 16:43] LABS: Pregnancy, Serum, hCG Quali. NEGATIVE Negative (0-9 Nonpreg); hCG Titer Quant., Serum 6 mIU/mL (1-3)
== END | disposition home or self-care (01) ==
PROVIDERS: PCP Family Medicine; Referring Provider Obstetrics & Gynecology; Visit Provider Obstetrics & Gynecology
DX: O46.90 Antepartum hemorrhage, unspecified, unspecified trimester (principal); Z3A.00 Weeks of gestation of pregnancy not specified
CPT/HCPCS: 84703; 36415; 84702